=== PATIENT | male | born 1955 | race Caucasian/White ===

== ENCOUNTER 2019-01-25 05:45 | Emergency (ER) | payer BC, OTHER ==
--- NOTE | 2019-01-25 06:20 | ED ---
HPI Chest Pain - HPI Summary HPI Summary: Pt. is a 63 y.o male who was transferred from [facility] for elevated troponin. Pt. denies past medical hx of HTN, HDL, CAD, smoking. He denies strong family hx of CAD. Pt. reports hx of ETOH use but states he has since stopped drinking. Pt. states he went on vacation with his last week and since has been having abd. pain. Pain is diffuse and sharp in nature. Pt. was seen at [facility] 01/21 and had a noncontrast ct which was reportedly unremarkable other than renal stones. Pt. states his abd. pain persisted so he went back to [place] [facility] for abd. pain. He was found to have a troponin x 1 of 0.059. ECG unremarkable. Pt. received ASA, morphine and carvedilol. Pt. denies any hx of chest pain, shortness of breath, dizziness, syncope. Pt. denies CAD hx. He states he sees his PCP on a regular basis. Has never had stress test. Sxs are moderate in severity. Pt. currently denies any CP or abd. pain in ED. - History of Current Complaint Chief Complaint: EDGeneral Time Seen by Provider: 01/25/19 05:57 Hx Obtained From: Patient Pain Intensity: 0 - Allergy/Home Medications Allergies/Adverse Reactions: Allergies Allergy/AdvReac Type Severity Reaction Status Date / Time No Known Allergies Allergy Verified 01/25/19 05:53 PMH/Surg Hx/FS Hx/Imm Hx Previously Healthy: Yes Infectious Disease History: No Infectious Disease History: Denies: Traveled Outside the [place] in Last 30 Days - Family History Known Family History: Positive: Non-Contributory - Social History Occupation: Retired Lives: With Family Alcohol Use: Occasionally Substance Use Type: Reports: None Smoking Status (MU): Never Smoked Tobacco Review of Systems Constitutional: Negative Negative: Fever, Chills Cardiovascular: Negative Negative: Palpitations, Chest Pain Respiratory: Negative Negative: Shortness Of Breath, Cough Positive: Abdominal Pain. Negative: Vomiting, Diarrhea, Nausea Genitourinary: Negative Neurological: Negative All Other Systems Reviewed And Are Negative: Yes Physical Exam Triage Information Reviewed: Yes Vital Signs On Initial Exam: Initial Vitals Temp Pulse Resp BP Pulse Ox 98.4 F 75 16 141/79 98 01/25/19 05:48 01/25/19 05:48 01/25/19 05:48 01/25/19 05:48 01/25/19 05:48 Vital Signs Reviewed: Yes Appearance: Positive: Well-Appearing - Pt. sitting up in bed in NAD. Pleasant. Skin: Positive: Warm, Dry Head/Face: Positive: Normal Head/Face Inspection Eyes: Positive: Normal, EOMI, GATO Neck: Positive: Supple Respiratory/Lung Sounds: Positive: Clear to Auscultation, Breath Sounds Present Cardiovascular: Positive: Normal, RRR. Negative: Murmur Abdomen Description: Positive: Nontender, Soft. Negative: CVA Tenderness (R), CVA Tenderness (L) Musculoskeletal: Positive: Normal, Strength/ROM Intact Neurological: Positive: Normal, CN Intact II-III Psychiatric: Positive: Affect/Mood Appropriate Diagnostics - Vital Signs Vital Signs Temp Pulse Resp BP Pulse Ox 01/25/19 06:03 72 19 119/85 98 01/25/19 06:00 79 17 98 01/25/19 05:56 76 15 97 01/25/19 05:48 98.4 F 75 16 141/79 98 - Laboratory Result Diagrams: 01/25/19 06:25 01/25/19 06:25 Lab Statement: Any lab studies that have been ordered have been reviewed, and results considered in the medical decision making process. Chest Pain Course/Dx - Course Course Of Treatment: Pt. transferred for elevated troponin. Pt. currently has no pain on exam and has a benign abd. exam. ECG done at 0629 shows a sinus rhythm of 72bpm, normal axis, no ST elevation or depression. 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 Will repeat labs. CT scan abd/pelvis without contrast was obtained from [facility] from 01/21/19 impression per radiology: "1. enlarged uncinate process with surroudning edema and adenopathy, suspicious for pancreatitis. an underlying mass should be excluded at the conclusion of medical therapy with dedicated contrast enhanced CT of the pancreas. 2. left renal stones, small pericardial effusion, and diverticulosis." Will obtain ct scan with contrast for further information on pancreatic mass. CT abd./pelvis per radiolgoy: IMPRESSION: #. The constellation of findings is highly suspicious for a pancreatic adenocarcinoma. centered at the uncinate process with extension to the third portion of the duodenum and. partial encasement of the superior mesenteric artery as well as resulting mild obstruction. of the main pancreatic duct. Probable metastatic lymph nodes in the central small bowel. mesentery. No liver metastasis is identified. #. Results discussed with ISI Raymond 01/25/2019 8:59 AM EDT. Labs unremarkable other than troponin x 2 at 0.04. Discussed case with Dr. Rojas who feels pt.'s sxs are not cardiac related and that pt. can f.u outpt. with pcp and oncology. Case discussed with Dr. Lambert, oncology, and they will see pt. in office 01/30/19 at 1400. Results and plan discussed with pt. Pt. notes he was rx tramadol last week from er but states they are not helping with his pain. ART MUSEUM AIDE reviewed, no red flags noted, small rx for lortab. Pt. and understand and agree with plan. Will return to ER if sxs change or worsen otherwise will f.u with oncology on Monday for further evaluation of mass. - Diagnoses Provider Diagnoses: Pancreatic mass Discharge - Sign-Out/Discharge Documenting (check all that apply): Patient Departure Patient Received Moderate/Deep Sedation with Procedure: No - Discharge Plan Condition: Good Disposition: HOME Prescriptions: Hydrocodone/Acetaminophen [Hydrocodone-Acetamin 5-325 mg] 1 each PO Q6H #12 tablet MDD 4 Referrals: Bettye MENDEZ,Igor Zavala [Primary Care Provider] - Haroon Lambert MD [Medical Doctor] - Additional Instructions: Oncology will see you in office 01/30/19 at 2:00pm Return to ER sooner if symptoms change or worsen - Billing Disposition and Condition Condition: GOOD Disposition: Home
[2019-01-25 06:31] LABS: ABS Eosinophils 0.1 10^3/ul (0-0.6); ABS Lymphocytes 1.7 10^3/ul (1.0-4.8); ABS Monocytes 0.8 10^3/ul (0-0.8); ABS Neutrophils 7.8 10^3/ul (1.5-7.7); Eosinophil % 1.1 %; Hematocrit 41 % (42-52); Hemoglobin 13.9 g/dL (14.0-18.0); Mean Corpuscular HGB Conc 34 g/dL (31-36); Mean Corpuscular Hemoglobin 31 pg (27-31); Mean Corpuscular Volume 92 fL (80-94); Mean Platelet Volume 8.3 fL (7.4-10.4); Nucleated Red Blood Cells % 0.1; Platelet Count 282 10^3/uL (150-450); Red Blood Count 4.44 10^6 /uL (4.18-5.48); Red Cell Distribution Width 14 % (10-15); White Blood Count 10.4 10^3/uL (3.5-10.8)
[2019-01-25 06:39] LABS: Activated Partial Thrombo Time 33.3 seconds (26.0-38.0); INR 1.1 (0.82-1.09)
[2019-01-25 06:50] LABS: BUN/Creatinine Ratio 11.6 (8-20); Potassium 3.8 mmol/L (3.5-5.0)
[2019-01-25 06:51] LABS: Albumin 4.2 g/dL (3.2-5.2); Albumin/Globulin Ratio 1.5 (1-3); Calcium 9.6 mg/dL (8.6-10.3); EGFR African American 140.6 (>60); EGFR Non-African American 116.2 (>60); Globulin 2.8 g/dL (2-4); Magnesium 2.2 mg/dL (1.9-2.7); Total Bilirubin 0.5 mg/dL (0.2-1.0)
[2019-01-25 06:51] LABS: Urine Appearance Clear; Urine Bilirubin Negative (Negative); Urine Blood Negative (Negative); Urine Color Yellow; Urine Glucose Negative (Negative); Urine Ketones Negative (Negative); Urine Nitrite Negative (Negative); Urine Protein Negative (Negative); Urine Specific Gravity 1.012 (1.010-1.030); Urine Urobilinogen Negative (Negative)
[2019-01-25 06:59] LABS: Troponin I 0.04 ng/mL (<0.04)
[2019-01-25] MEDS ORDERED: Iohexol 300* (CONTRAST) 10 ML SDV IV ONE (07:46)
[2019-01-25 09:21] LABS: Troponin I 0.04 ng/mL (<0.04)
[2019-01-25 09:49] VITALS: BP 132/83
== END 2019-01-25 09:48 | disposition home or self-care (01) ==
LOC: ED 05:45
DX: K86.9 Disease of pancreas, unspecified (principal)
CPT/HCPCS: 36415; 74177; 80053; 81003; 83605; 83690; 83735; 84484; 85025; 85610; 85730; 93005; 99283; Q9967

== ENCOUNTER 2019-02-03 08:12 | Observation (INO) | payer BC ==
[2019-02-03] MEDS ORDERED: Ondansetron INJ* 2 MG/ML VIAL IV ONE (08:27)
[2019-02-03] MEDS ORDERED: HYDROmorphone INJ1* 1 MG/ML SYRINGE IV ONE ×2 (08:27→10:35)
[2019-02-03] MEDS ORDERED: NS 0.9% 1000 ML** 1,000 ML IV ONE (08:27)
--- NOTE | 2019-02-03 08:28 | ED ---
Abdominal Pain/Male - HPI Summary HPI Summary: Pt. is a 63 y.o male who presents to the ER for severe abdominal pain. Pt. recently diagnosed with a pancreatic mass. He saw oncology, Dr. Lambert, this past week and is scheduled for biopsy next week. Pt. states he has been taking lortab for pain which has been mildly helping. Pt. states that pain became more sever last night and he was unable to sleep. Pain is located to upper abd. Associated sxs of nausea. Pt. notes mild CP last night that has resolved. He denies SOB, fever, cough. He notes he has been constipated but took a laxative last night and produced a BM. Sxs are moderate in severity. No current modifying factors. - History of Current Complaint Chief Complaint: EDAbdPain Stated Complaint: ABD PAIN PER PT Time Seen by Provider: 02/03/19 08:17 Hx Obtained From: Patient Pain Intensity: 6 - Allergies/Home Medications Allergies/Adverse Reactions: Allergies Allergy/AdvReac Type Severity Reaction Status Date / Time No Known Allergies Allergy Verified 02/03/19 08:20 Home Medications: Home Medications Hydrocodone/Acetaminophen [Hydrocodone-Acetamin 5-325 mg] 1 each PO Q6H PRN MDD 4 02/03/19 [History Confirmed 02/03/19] Ondansetron ODT TAB* [Zofran 4 MG Odt TAB*] 4 mg PO Q8HR PRN 02/03/19 [History Confirmed 02/03/19] PMH/Surg Hx/FS Hx/Imm Hx Previously Healthy: Yes Infectious Disease History: No Infectious Disease History: Denies: Traveled Outside the [place] in Last 30 Days - Family History Known Family History: Positive: Non-Contributory - Social History Occupation: Retired Lives: With Family Alcohol Use: Occasionally Substance Use Type: Reports: None Smoking Status (MU): Never Smoked Tobacco Review of Systems Constitutional: Negative Negative: Fever, Chills ENT: Negative Cardiovascular: Negative Negative: Palpitations, Chest Pain Respiratory: Negative Negative: Shortness Of Breath, Cough Positive: Abdominal Pain, Nausea. Negative: Vomiting, Diarrhea Genitourinary: Negative Neurological: Negative All Other Systems Reviewed And Are Negative: Yes Physical Exam Triage Information Reviewed: Yes Vital Signs On Initial Exam: Initial Vitals Temp Pulse Resp BP Pulse Ox 98 F 103 16 152/94 98 02/03/19 08:12 02/03/19 08:12 02/03/19 08:12 02/03/19 08:12 02/03/19 08:12 Vital Signs Reviewed: Yes Appearance: Positive: Pain Distress - Pt. sitting on side of bed appears very uncomforable in pain. Skin: Positive: Warm, Dry Head/Face: Positive: Normal Head/Face Inspection Eyes: Positive: Normal, EOMI, GATO Neck: Positive: Supple Respiratory/Lung Sounds: Positive: Clear to Auscultation, Breath Sounds Present Cardiovascular: Positive: Normal, RRR Neurological: Positive: Normal, CN Intact II-III Diagnostics - Vital Signs Vital Signs Temp Pulse Resp BP Pulse Ox 02/03/19 08:12 98 F 103 16 152/94 98 - Laboratory Result Diagrams: 02/03/19 08:40 02/03/19 08:40 Lab Statement: Any lab studies that have been ordered have been reviewed, and results considered in the medical decision making process. Abdominal Pain Male Course/Dx - Course Course Of Treatment: Pt. presenting with severe upper abd. pain. He is afebrile with stable VS. Pt. dx with pancreatic mass last week. Pt. notes an episode of chest pain last night. IV started. Pt. given IV dilaudid. CBC shows mild elevation in WBC of 11.1. Lactic acid 2.2. Troponin slighly elevated at 0.05. ECG done at 0856 shows a sinus rhythm of 83bpm, normal axis, no ST elevatio no depression. On re-exam pt.'s pain has improved and he is resting comfortably. Case discussed with Dr. Hobbs who recommends CTA to r/o PE given pain and ca. She also recommends admission for further cardiac workup. Case discussed with Dr. Bowers and she will accept pt. for admission. CTA per radiology: IMPRESSION : #. Extensive retained secretions/mucous plugging at the RIGHT lower lobe airways with. associated postobstructive atelectasis and potential inflammatory infiltrate. #. Negative for suspicious focal pulmonary lesions. # . Negative for pulmonary embolism. - Diagnoses Differential Diagnosis/HQI/PQRI: ACS, AMI, Appendicitis, Bowel Obstruction Provider Diagnoses: Elevated troponin, Uncontrolled pain Discharge - Sign-Out/Discharge Documenting (check all that apply): Patient Departure Patient Received Moderate/Deep Sedation with Procedure: No - Discharge Plan Condition: Stable Disposition: ADMITTED TO [facility] - Billing Disposition and Condition Condition: STABLE Disposition: Admitted to [facility]
[2019-02-03 08:54] LABS: ABS Basophils 0.1 10^3/ul (0-0.2); ABS Eosinophils 0.1 10^3/ul (0-0.6); ABS Lymphocytes 1.5 10^3/ul (1.0-4.8); ABS Monocytes 0.9 10^3/ul (0-0.8); ABS Neutrophils 8.4 10^3/ul (1.5-7.7); Eosinophil % 0.8 %; Hematocrit 44 % (42-52); Hemoglobin 14.3 g/dL (14.0-18.0); Lymphocyte % 13.3 %; Mean Corpuscular HGB Conc 33 g/dL (31-36); Mean Corpuscular Hemoglobin 31 pg (27-31); Mean Corpuscular Volume 93 fL (80-94); Mean Platelet Volume 8.5 fL (7.4-10.4); Platelet Count 375 10^3/uL (150-450); Red Cell Distribution Width 14 % (10-15); White Blood Count 11.1 10^3/uL (3.5-10.8)
[2019-02-03 09:05] LABS: ALT 19 U/L (7-52); AST 16 U/L (13-39); Albumin 4.4 g/dL (3.2-5.2); Albumin/Globulin Ratio 1.5 (1-3); Alkaline Phosphatase 81 U/L (34-104); Anion Gap 7 mmol/L (2-11); BUN/Creatinine Ratio 14.9 (8-20); Blood Urea Nitrogen 11 mg/dL (6-24); C Reactive Protein 2.41 mg/L (<8.01); CO2 Carbon Dioxide 26 mmol/L (22-32); Chloride 103 mmol/L (101-111); EGFR African American 129.7 (>60); EGFR Non-African American 107.2 (>60); Glucose 130 mg/dL (70-100); Potassium 3.7 mmol/L (3.5-5.0); Sodium 136 mmol/L (135-145); Total Protein 7.4 g/dL (6.4-8.9)
[2019-02-03 09:12] LABS: Troponin I 0.05 ng/mL (<0.04)
[2019-02-03 09:57] LABS: Urine Appearance Clear; Urine Bacteria Absent (Absent); Urine Bilirubin Negative (Negative); Urine Blood 1+ (Negative); Urine Color Yellow; Urine Glucose Negative (Negative); Urine Ketones Negative (Negative); Urine Nitrite Negative (Negative); Urine Protein Negative (Negative); Urine Red Blood Cell Trace(0-2/hpf) (Absent); Urine Specific Gravity 1.006 (1.010-1.030); Urine Urobilinogen Negative (Negative); Urine White Blood Cell Trace(0-5/hpf) (Absent)
[2019-02-03] MEDS ORDERED: Iohexol 350* (CONTRAST) 500 ML MDV IV ONE (11:30)
[2019-02-03] MEDS ORDERED: HYDROmorphone INJ* 0.5 MG/0.5 ML SYRINGE IV SLOW PU PRN (12:27)
[2019-02-03] MEDS ORDERED: Ondansetron ODT TAB* 4 MG SL PRN (12:29)
[2019-02-03 12:37] LABS: Troponin I 0.05 ng/mL (<0.04)
[2019-02-03] MEDS: oxyCODONE SR TAB(*) 10 MG TAB.SR PO SCH ×2 (13:07→22:16)
[2019-02-03] MEDS: Heparin VIAL(*) 5000 UNITS/ML VIAL (FIVE THOUSAND) SUBCUT SCH ×2 (14:26→22:17)
--- NOTE | 2019-02-03 14:59 | HP ---
CC: Dr. Lambert; Dr. Wen * [facility] MEDICINE HISTORY AND PHYSICAL: DATE OF ADMISSION: 02/03/19 PRIMARY CARE PHYSICIAN: Dr. Wen. ATTENDING PHYSICIAN: Dr. Albertina Bowers * (dictation provided by Marie Pandya NP ). CHIEF COMPLAINT: Abdominal and back pain. HISTORY OF PRESENT ILLNESS: Mr. Sykes is a 63-year-old male with no significant past medical history until January of this year. The patient reports that he developed abdominal pain on and was seen at [facility], at which time he was diagnosed with pancreatitis based on abnormal lipase. The patient was placed on a liquid diet, given pain medications and with this his pain resolved. He reports that he was doing well until November of this year when his pain returned. He was ultimately seen here in our hospital on 01/25/19, where he had an abdomen and pelvis CT, which showed concern for an uncinate process highly suspicious for pancreatic adenocarcinoma with extension to the third portion of the duodenum and encasement of the superior mesenteric artery as well as mild obstruction of the pancreatic duct. The patient was seen in consultation by Dr. Lambert on 01/31/19. I refer you to his consultation note for complete details. However, Dr. Lambert agreed that this was highly suspicious for pancreatic carcinoma and has referred him to [facility] for further workup. The patient has an appointment there tomorrow at 2 o'clock for a biopsy. In the intervening days, Mr. Sykes has had worsening pain. He says he has not slept for 2 weeks. He reports that he has severe pain along his left side that radiates down into his testicles and into his back. He has had chest pain at times. He states that it is mild, it is fleeting and seems to be when his pain is at its highest. He was given Hopewell 5/325 one tab p.o. q.6 hours for pain as well as Zofran. He states initially the Hopewell was helping with his pain, but over the last few days, nothing has been helping. Last night, he took 2 Hopewell and had no relief from his pain and ultimately presented here to the emergency room early this morning due to this uncontrolled abdominal pain. In the emergency room, Mr. Sykes had labs, which showed a mild elevation in his troponin to 0.05. This was consistent with his last check on 01/25/19, which showed it was 0.04 x2. He had an elevated lactic acid to 2.2. He has no leukocytosis. His hemoglobin and platelet count is normal, his urinalysis is normal. His vital signs are normal. With Dilaudid IV in the emergency room, he has had some improvement in his pain. PAST MEDICAL HISTORY: Finding of likely pancreatic carcinoma on CT abdomen and pelvis, 01/25/19. MEDICATIONS: As outpatient are: 1. Hopewell 5/325 one tab p.o. q.6 hours p.r.n. pain. 2. Zofran p.r.n. FAMILY HISTORY: The patient reports his mother related to lung cancer and father related to liver cancer. SOCIAL HISTORY: The patient is not a smoker. He reports that prior to this illness, he was drinking about a 30 pack of beer per week. He denies any drug use. He lives with his , his healthcare proxy. REVIEW OF SYSTEMS: A 14-point review of systems is completed with Ms. Sykes and all those not mentioned above were negative. PHYSICAL EXAMINATION GENERAL: Mr. Sykes is lying in the bed. He is in no acute distress. VITAL SIGNS: emperature 98, pulse rate 87, respiratory rate 18, O2 saturation 95% on room air, and blood pressure 165/91. LUNGS: Clear to auscultation bilaterally. No accessory muscle use and good aeration. HEART: S1, S2. No murmur, rub, or gallop and regular. ABDOMEN: Soft. There is tenderness in the left upper and mid quadrant. There is no rebound or guarding. Bowel sounds are positive. EXTREMITIES: No cyanosis or edema. SKIN: Intact. NEUROLOGIC: He is alert. He is oriented x3. He moves all extremities equally. There is no facial asymmetry or focal weakness. Extraocular movements are intact. DIAGNOSTIC STUDIES LAB DATA: WBC 11.1, hemoglobin 14.3, hematocrit 44, platelet count 375,000. Sodium 136, potassium 3.7, chloride 103, serum bicarbonate 26, BUN 11, creatinine 0.74, glucose 130, lactic acid 2.2, troponin 0.05. CRP 2.41. Urine shows no evidence of infection. A chest/thorax CTA was obtained and shows the following; "extensive retained secretions, mucus plugging at the right lower lobe airway with associated postobstructive atelectasis and potential inflammatory infiltrate. Negative for suspicious focal pulmonary lesions. Negative for pulmonary embolism. Chest x-ray showed the following; "stigmata of obstructive lung disease. No events for a thoracic metastatic disease. No acute pulmonary or cardiac process evident." EKG showed a sinus rhythm with no evidence of ischemia. ASSESSMENT: Mr. Sykes is a 63-year-old male with recent finding on 01/25/19 of a pancreatic mass highly suspicious for carcinoma with plan for followup tomorrow at 2 p.m. in [place] for biopsy, who presents today to the hospital with uncontrolled pain and concern for elevation in troponin. Our plans will be for observation in the hospital overnight for the followin. Elevated troponin: The patient does report some mild chest discomfort. I suspect that this is just secondary to his underlying uncontrolled pain. His troponin is 0.05, plan to repeat x 2. He will be monitored on the telemetry unit. If his troponin is stable as it has been since last checked on 01/25/19, I do not think a stress testing is warranted during this hospitalization. Of course, if the patient's troponins are rising, we will certainly consider workup as needed. 2. Uncontrolled pain. The patient is in significant pain and states he has not slept for 2 weeks because of it. He has tried Hopewell at home without good control. He has had Dilaudid here in the ED, which has helped. I think that his main issue is this uncontrolled pain and we would like to work with him today starting with oxycodone SR at 10 mg p.o. b.i.d., starting with one dose now and then to increase the dose tonight if need be. He will have oxycodone and acetaminophen 2 tabs q.4 hours p.r.n. as well and he will have hydromorphone 0.5 mg p.r.n. for breakthrough beyond his oral regimen. Goal for the observation stay is also to improve his pain control so that he can withstand the ride to [place] where he will be obtaining his necessary biopsy. 3. Code status is full code. 4. DVT prophylaxis. Heparin subcu. TIME SPENT: Approximately 60 minutes were spent in admission of this patient, more than half of the time spent with the patient at the bedside reviewing the events leading up to this hospitalization, performing the physical examination, and reviewing my plan of care. L JACOB PANDYA NP [id number]/[facility] #: [id number] [facility]OSPITALBeth
[2019-02-03] MEDS: oxyCODONE/Acetamin 5/325 MG* TAB PO PRN ×2 (15:01→20:33)
[2019-02-03 15:53] LABS: Troponin I 0.04 ng/mL (<0.04)
[2019-02-03 19:30] LABS: Troponin I 0.05 ng/mL (<0.04)
[2019-02-04] MEDS: Heparin VIAL(*) 5000 UNITS/ML VIAL (FIVE THOUSAND) SUBCUT SCH (05:05)
[2019-02-04 08:36] VITALS: BP 126/71
[2019-02-04] MEDS: oxyCODONE SR TAB(*) 10 MG TAB.SR PO SCH (09:24)
[2019-02-04] MEDS: oxyCODONE/Acetamin 5/325 MG* TAB PO PRN (10:12)
--- NOTE | 2019-02-04 23:36 | DS ---
CC: Dr. Wen; Dr. Lambert * DISCHARGE SUMMARY: DATE OF ADMISSION: 02/03/19 DATE OF DISCHARGE: 02/04/19 PRIMARY DIAGNOSIS: Abdominal pain. SECONDARY DIAGNOSIS: Pancreatic mass, suspicious for pancreatic adenocarcinoma , nausea. MEDICATIONS ON DISCHARGE: 1. Ondansetron 4 mg p.o. q.8 hours as needed for nausea. 2. OxyContin 10 mg p.o. b.i.d. 3. Oxycodone/acetaminophen 5/325 one to two tabs p.o. q.6 hours p.r.n. pain. The patient was sent home with 30 tablets of OxyContin and 40 tablets of oxycodone/acetaminophen. MANAGER PORT was checked showed that he previously received hydrocodone from Dr. Lambert. CONSULTATIONS: None. HOSPITAL COURSE: The patient was admitted with right flank and abdominal pain that was not responding to outpatient treatment with hydrocodone. There was a concern about chest pain. In the emergency department, the patient had troponin drawn, which was 0.05. The troponins were repeated on 3 other occasions and the readings were 0.05, 0.04, and 0.05. Initial lactic acid was 2.2, it fell to 1.0. There were no other signs of sepsis, such as tachycardia, fever, or high white count. The patient was monitored on telemetry overnight and had no specific arrhythmias. No cardiac testing was pursued as the pain in his epigastric area was thought to be due to this pancreatic mass. Other laboratory tests of note, white count was 11.1. Urinalysis was negative except for 1+ blood. Lipase was normal at 55. The patient had an appointment on the day of discharge in [place] for biopsy of the pancreatic lesion. Because no cardiac problems were found overnight, the patient was discharged this morning with plan to see specialist later today in [place]. If chest pain returns, the patient should have a outpatient cardiac stress test. Because he is a nonsmoker and no known hypertension, hyperlipidemia, or diabetes, he is thought to be low risk for heart disease. STATUS: Observation. CONDITION: Stable. DISPOSITION: Home. DIET: Should be low fat diet. ACTIVITY: As tolerated. [id number]/[facility] #: [id number] [facility] SYSTEMBeth
== END 2019-02-04 10:24 | disposition home or self-care (01) ==
LOC: ED 08:12 → MEDTELE 12:27
PROVIDERS: ADMIT Internal Medicine; ATTEND Internal Medicine
DX: R10.9 Unspecified abdominal pain (principal); K86.9 Disease of pancreas, unspecified; R11.0 Nausea; M54.9 Dorsalgia, unspecified
CPT/HCPCS: 36415; 71045; 71275; 80053; 81003; 81015; 83605; 83690; 84484; 85025; 86140; 87086; 93005; 96361; 96372; 96374; 96375; 96376; 99285; A9270-GY; G0378; J1170; J1644; J2405; Q9967

== ENCOUNTER 2019-02-17 03:59 | Emergency (ER) | payer BC ==
[2019-02-17 04:19] LABS: ABS Basophils 0.1 10^3/ul (0-0.2); ABS Eosinophils 0.2 10^3/ul (0-0.6); ABS Lymphocytes 1.4 10^3/ul (1.0-4.8); ABS Monocytes 0.8 10^3/ul (0-0.8); ABS Neutrophils 8.9 10^3/ul (1.5-7.7); Eosinophil % 1.8 %; Hematocrit 39 % (42-52); Hemoglobin 13.1 g/dL (14.0-18.0); Lymphocyte % 12.4 %; Mean Corpuscular HGB Conc 34 g/dL (31-36); Mean Corpuscular Hemoglobin 31 pg (27-31); Mean Corpuscular Volume 92 fL (80-94); Mean Platelet Volume 7.9 fL (7.4-10.4); Nucleated Red Blood Cells % 0.1; Platelet Count 331 10^3/uL (150-450); Red Blood Count 4.22 10^6 /uL (4.18-5.48); Red Cell Distribution Width 14 % (10-15); White Blood Count 11.5 10^3/uL (3.5-10.8)
[2019-02-17 04:38] LABS: ALT 28 U/L (7-52); AST 18 U/L (13-39); Albumin 4.3 g/dL (3.2-5.2); Albumin/Globulin Ratio 1.6 (1-3); Alkaline Phosphatase 75 U/L (34-104); Anion Gap 8 mmol/L (2-11); BUN/Creatinine Ratio 21.6 (8-20); Blood Urea Nitrogen 19 mg/dL (6-24); CO2 Carbon Dioxide 24 mmol/L (22-32); Calcium 9.8 mg/dL (8.6-10.3); Chloride 105 mmol/L (101-111); EGFR African American 106.2 (>60); EGFR Non-African American 87.8 (>60); Globulin 2.7 g/dL (2-4); Glucose 117 mg/dL (70-100); Potassium 3.8 mmol/L (3.5-5.0); Sodium 137 mmol/L (135-145)
[2019-02-17 04:50] LABS: INR 1.08 (0.82-1.09)
[2019-02-17 04:53] LABS: Troponin I 0.04 ng/mL (<0.04)
[2019-02-17] MEDS ORDERED: Morphine 4 MG/ML VIAL (1 ml) 4 MG/ML VIAL IV ONE ×2 (05:26→07:21)
[2019-02-17] MEDS ORDERED: Iohexol 350* (CONTRAST) 500 ML MDV IV ONE (05:29)
--- NOTE | 2019-02-17 06:24 | ED ---
HPI Chest Pain - HPI Summary HPI Summary: The patient is a 63 y/o M presenting to [facility] accompanied by with a chief complaint of sudden onset intermittent episodes of left anterior CP starting two days ago. He reports that two days ago, he felt two episodes of sharp, "electrical shock" sensations in the left chest that last for seconds. He then had two more episodes the next day, and he developed SOB and diaphoresis. He additionally c/o cough, nausea and vomiting for 2-3 days, constipation, and abd pain. He denies new edema. The pain is currently rated 3/10. 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 Hx mitral valve prolapse, pancreatic cancer. Nonsmoker, no EtOH, marijuana use. - History of Current Complaint Chief Complaint: EDChestPainROMI Time Seen by Provider: 02/17/19 04:24 Hx Obtained From: Patient Onset/Duration: Started Days Ago - two, Still Present Timing: Intermittent, Lasting Seconds Initial Severity: Mild Current Severity: Moderate Pain Intensity: 3 Pain Scale Used: 0-10 Numeric Chest Pain Location: Left Anterior Chest Pain Radiates: No Character: Other: - "electric shock" Aggravating Factor(s): Nothing Alleviating Factor(s): Nothing Associated Signs and Symptoms: Positive: Shortness of Breath, Diaphoresis, Nausea, Cough, Abdominal Pain, Vomiting, Other: - NEGATIVE: constipation. Negative: Edema - Allergy/Home Medications Allergies/Adverse Reactions: Allergies Allergy/AdvReac Type Severity Reaction Status Date / Time No Known Allergies Allergy Verified 02/15/19 12:25 Home Medications: Home Medications Docusate Sodium [Colace] 100 mg PO BID 02/17/19 [History Confirmed 02/17/19] PMH/Surg Hx/FS Hx/Imm Hx Endocrine/Hematology History: Denies: Hx Diabetes Cardiovascular History: Reports: Other Cardiovascular Problems/Disorders - pt reports prolapse Denies: Hx Hypertension Respiratory History: Reports: Hx Seasonal Allergies - pt reports "not bad, doesnt even take anything for them" History: Reports: Hx Kidney Stones - pt reports last week Denies: Hx Renal Disease Sensory History: Reports: Hx Hearing Problem - left side pt reports 30% loss Denies: Hx Contacts or Glasses, Hx Hearing Aid, Other Sensory Impairments Opthamlomology History: Denies: Hx Contacts or Glasses, Other Sensory Impairments - Surgical History Surgery Procedure, Year, and Place: chest tube for punctured lung. lumbar surgery. left knee ACL repair. left TKA. L4-L5 Back surgery 1996 Hx Anesthesia Reactions: No Infectious Disease History: No Infectious Disease History: Reports: Hx Shingles - 2014, Hx Tuberculosis - 1985 Denies: Hx Clostridium Difficile, Hx Hepatitis, Hx Human Immunodeficiency Virus (HIV), Hx of Known/Suspected MRSA, Hx Known/Suspected VRE, Hx Known/ Suspected VRSA, History Other Infectious Disease, Traveled Outside the [place] in Last 30 Days - Family History Known Family History: Negative: Hypertension - Social History Alcohol Use: None Alcohol Amount: for 8 months Hx Substance Use: Yes Substance Use Type: Reports: Marijuana Substance Use Comment - Amount & Last Used: occasional Hx Tobacco Use: No Smoking Status (MU): Never Smoked Tobacco Review of Systems Positive: Skin Diaphoresis Positive: Chest Pain - quick, sharp "electrical" in left anterior Positive: Shortness Of Breath, Cough Positive: Abdominal Pain, Vomiting, Nausea, Other - constipation. Negative: Diarrhea Negative: Edema All Other Systems Reviewed And Are Negative: Yes Physical Exam - Summary Physical Exam Summary: Constitutional: Well-developed, Well-nourished, Alert. (-) Distressed Skin: Warm, Dry HENT: Normocephalic; Atraumatic Eyes: Conjunctiva normal Neck: Musculoskeletal ROM normal neck. (-) JVD, (-) Stridor, (-) Tracheal deviation Cardio: Rhythm regular, rate normal, Heart sounds normal; Intact distal pulses; The pedal pulses are 2+ and symmetric. Radial pulses are 2+ and symmetric. (-) Murmur Pulmonary/Chest wall: Effort normal. (-) Respiratory distress, (-) Wheezes, (-) Rales Abd: Soft, (+) tenderness across the upper abdomen, (-) Distension, (-) Guarding , (-) Rebound Musculoskeletal: Atraumatic Lymph: (-) Cervical adenopathy Neuro: Alert, Oriented x3 Psych: Mood and affect Normal Triage Information Reviewed: Yes Vital Signs On Initial Exam: Initial Vitals Temp Pulse Resp BP Pulse Ox 98.4 F 84 30 141/86 99 02/17/19 04:08 02/17/19 04:08 02/17/19 04:08 02/17/19 04:08 02/17/19 04:08 Vital Signs Reviewed: Yes Diagnostics - Vital Signs Vital Signs Temp Pulse Resp BP Pulse Ox 02/17/19 06:00 85 18 92 02/17/19 05:29 28 02/17/19 05:10 87 31 144/85 99 02/17/19 05:00 31 02/17/19 04:55 29 126/80 02/17/19 04:10 87 26 141/86 99 02/17/19 04:08 98.4 F 84 30 141/86 99 - Laboratory Lab Results: Lab Results 02/17/19 02/17/19 02/17/19 Range/Units 04:12 04:12 04:12 WBC 11.5 H (3.5-10.8) 10^3/uL RBC 4.22 (4.18-5.48) 10^6 /uL Hgb 13.1 L (14.0-18.0) g/dL Hct 39 L (42-52) % MCV 92 (80-94) fL MCH 31 (27-31) pg MCHC 34 (31-36) g/dL RDW 14 (10-15) % Plt Count 331 (150-450) 10^3/uL MPV 7.9 (7.4-10.4) fL Neut % (Auto) 77.7 % Lymph % (Auto) 12.4 % [place] % (Auto) 7.3 % Eos % (Auto) 1.8 % Baso % (Auto) 0.8 % Absolute Neuts (auto) 8.9 H (1.5-7.7) 10^3/ul Absolute Lymphs (auto) 1.4 (1.0-4.8) 10^3/ul Absolute Monos (auto) 0.8 (0-0.8) 10^3/ul Absolute Eos (auto) 0.2 (0-0.6) 10^3/ul Absolute Basos (auto) 0.1 (0-0.2) 10^3/ul Absolute Nucleated RBC 0.0 10^3/ul Nucleated RBC % 0.1 INR (Anticoag Therapy) 1.08 (0.82-1.09) Sodium 137 (135-145) mmol/L Potassium 3.8 (3.5-5.0) mmol/L Chloride 105 (101-111) mmol/L Carbon Dioxide 24 (22-32) mmol/L Anion Gap 8 (2-11) mmol/L BUN 19 (6-24) mg/dL Creatinine 0.88 (0.67-1.17) mg/dL Est GFR ( Amer) 106.2 (>60) Est GFR (Non-Af Amer) 87.8 (>60) BUN/Creatinine Ratio 21.6 H (8-20) Glucose 117 H (70-100) mg/dL Calcium 9.8 (8.6-10.3) mg/dL Total Bilirubin 0.50 (0.2-1.0) mg/dL AST 18 (13-39) U/L ALT 28 (7-52) U/L Alkaline Phosphatase 75 (34-104) U/L Troponin I 0.04 H* (<0.04) ng/mL Total Protein 7.0 (6.4-8.9) g/dL Albumin 4.3 (3.2-5.2) g/dL Globulin 2.7 (2-4) g/dL Albumin/Globulin Ratio 1.6 (1-3) Result Diagrams: 02/17/19 04:12 02/17/19 04:12 Lab Statement: Any lab studies that have been ordered have been reviewed, and results considered in the medical decision making process. - Radiology CXR Radiology Interpretation Completed By: Radiologist Summary of Radiographic Findings: Left lobe with infiltrate, questionable PNA. ED physician has reviewed this imaging report. - CT Chest/Thorax CTA CT Interpretation Completed By: Radiologist Summary of CT Findings: No evidence of pulmonary embolism. ED physician has reviewed this imaging report. - EKG 0402 Cardiac Rate: NL - 84 BPM EKG Rhythm: Sinus Rhythm Summary of EKG Findings: Normal sinus rhythm at 84 bpm, normal [place], normal QRS, normal QTc, normal axis, normal ST, normal T-waves, normal EKG. Re-Evaluation - Re-Evaluation First Eval Re-Evaluation Time: 06:00 Change: Improved Comment: He is feeling better. Second Eval Re-Evaluation Time: 07:30 Comment: I discussed findings and possible discharge with the patient. Chest Pain Course/Dx - Course Course Of Treatment: The patient is a 63 y/o M presenting to [facility] accompanied by with a chief complaint of sudden onset four intermittent episodes of left anterior CP starting two days ago that feels like electric shock lasting for seconds. He then had two more episodes the next day, and he developed SOB and diaphoresis. He additionally c/o nausea and vomiting for 2-3 days, constipation, and abd pain. He denies new edema. Hx mitral valve prolapse, pancreatic cancer. Upon physical exam, the patient exhibits tenderness across the upper abd without rebound or guarding. Blood work reveals WBCs of 11.5, hgb of 13.1, hct of 39, abs neuts of 8.9, BUN/Creatinine of 21.6, glucose of 117. Troponin of 0.04. EKG reveals nonspecific EKG of NSR at 84 BPM. CXR reveals left lobe with infiltrate, questionable PNA. Chest/Thorax CTA Impression: No evidence of pulmonary embolism. In the ED course, the patient was administered Morphine, Doxycycline, Percocet, and Roxycodone. The patient is diagnosed with chest pain, questionable PNA, and pancreatic cancer. He will be discharged with rx of Doxycycline. - Diagnoses Provider Diagnoses: Chest pain, Pancreatic cancer Discharge - Sign-Out/Discharge Documenting (check all that apply): Patient Departure - Patient will be discharged home. Patient Received Moderate/Deep Sedation with Procedure: No - Discharge Plan Condition: Stable Disposition: HOME Prescriptions: DOXYcycline CAP(*) [DOXYcycline 100MG CAP(*)] 100 mg PO BID #20 cap Oxycodone HCl/Acetaminophen [Percocet 7.5-325 mg Tablet] 1 each PO Q4HR PRN #20 tablet MDD 4 PRN Reason: Pain Patient Education Materials: Acute Abdominal Pain (ED), Community Acquired Pneumonia (ED) Print Language: [place] Referrals: Dereje Wen MD [Primary Care Provider] - - Billing Disposition and Condition Condition: STABLE Disposition: Home - Attestation Statements Document Initiated by Satya: Yes Documenting Scribe: Kiya Douglass Provider For Whom Satya is Documenting (Include Credential): MD Jaylen Ruizibe Attestation: Kiya Campos scribed for Dr. Dary Vega MD on 02/17/19 at 0903. Scribe Documentation Reviewed: Yes Provider Attestation: The documentation as recorded by the Kiya bledsoe accurately reflects the service I personally performed and the decisions made by me, Dr. Dary Vega MD Status of Scribe Document: Viewed
[2019-02-17 07:40] LABS: Troponin I 0.04 ng/mL (<0.04)
[2019-02-17] MEDS ORDERED: oxyCODONE/Acetamin 5/325 MG* TAB PO PRN (08:07)
[2019-02-17] MEDS ORDERED: DOXYCYCLINE HYCLATE 50 MG CAP (NF) PO ONE (08:07)
[2019-02-17] MEDS ORDERED: oxyCODONE TAB* 5 MG TAB PO PRN (08:15)
[2019-02-17 08:34] VITALS: BP 125/71
[2019-02-17] MEDS ORDERED: DOXYcycline CAP(*) 100 MG PO ONE (09:00)
== END 2019-02-17 09:03 | disposition home or self-care (01) ==
LOC: ED 03:59
DX: R07.9 Chest pain, unspecified (principal); C25.9 Malignant neoplasm of pancreas, unspecified; I34.1 Nonrheumatic mitral (valve) prolapse
CPT/HCPCS: 36415; 71046; 71275; 80053; 84484; 85025; 85610; 93005; 96374; 96375; 99283; A9270-GY; J2270; Q9967

== ENCOUNTER 2021-01-24 21:42 | Inpatient (IN) ==
[2021-01-24] MEDS ORDERED: diPHENhydraMINE IV 50 MG/ML 1 ml VIAL (BENADRYL) SLOW PUSH ONE (22:15)
[2021-01-24 22:59] LABS: Hematocrit 26 % (42-52); Hemoglobin 8.7 g/dL (14.0-18.0); Mean Corpuscular HGB Conc 34 g/dL (31-36); Mean Corpuscular Hemoglobin 33 pg (27-31); Mean Corpuscular Volume 97 fL (80-94); Mean Platelet Volume 9.9 fL (7.4-10.4); Platelet Count 70 10^3/uL (150-450); Red Blood Count 2.65 10^6 /uL (4.18-5.48); Red Cell Distribution Width 23 % (10-15); White Blood Count 11.9 10^3/uL (3.5-10.8)
[2021-01-24 23:07] LABS: ALT 17 U/L (7-52); AST 23 U/L (13-39); Albumin 2.4 g/dL (3.2-5.2); Alkaline Phosphatase 106 U/L (35-149); Blood Urea Nitrogen 24 mg/dL (6-24); Calcium 7.5 mg/dL (8.6-10.3); EGFR African American 63.3 (>60); EGFR Non-African American 52.3 (>60); Globulin 2.3 g/dL (2-4); Glucose 119 mg/dL (70-100); Potassium 3.1 mmol/L (3.5-5.0); Sodium 133 mmol/L (135-145); Total Protein 4.7 g/dL (6.4-8.9)
[2021-01-24 23:12] LABS: Chloride 112 mmol/L (101-111)
[2021-01-24 23:13] LABS: Anion Gap 11 mmol/L (2-11); Troponin I 0.05 ng/mL (<0.03)
[2021-01-24 23:15] LABS: CO2 Carbon Dioxide 10 mmol/L (22-32)
[2021-01-24 23:21] LABS: Polychromasia 1+
[2021-01-24 23:22] LABS: ABS Lymphocytes 0.4 10^3/ul (1.0-4.8); ABS Monocytes 0.3 10^3/ul (0-0.8); ABS Neutrophils 11.2 10^3/ul (1.5-7.7); ABS Nucleated RBC 0.3 10^3/ul; Nucleated Red Blood Cells % 2.4
[2021-01-24] MEDS ORDERED: Iodixanol (CONTRAST) 320 MG/ML 100 ML SDV IV ONE (23:38)
[2021-01-24] MEDS ORDERED: NS 0.9% 1000 ml BAG 1,000 ML IV ONE (23:55)
[2021-01-25] MEDS ORDERED: Azithromycin 500 mg/250 ml NS 500 MG/250 ML BAG IVPB ONE (01:03)
[2021-01-25] MEDS ORDERED: cefTRIAXone 1 gm/50 mL NS BAG 1 GM/50 ML BAG IV ONE (01:03)
[2021-01-25] MEDS ORDERED: Vancomycin 1,000 MG in NS 0.9% 250 ml 250 ML IVPB ONE (01:37)
[2021-01-25] MEDS ORDERED: Sodium Bicarbonate 8.4% SYR 50 ml SYRINGE IV ONE (01:38)
[2021-01-25] MEDS ORDERED: Lactated Ringers 1000 ml BAG 1,000 ML IV ONE ×2 (01:46→06:08)
[2021-01-25] MEDS ORDERED: Ondansetron 4 mg VIAL 2 MG/ML 2 ml VIAL IV PRN (01:46)
[2021-01-25] MEDS ORDERED: LACTATED RINGERS IV SCH (02:00)
[2021-01-25] MEDS ORDERED: Vancomycin per Pharmacy 1 EA NOTE FOLLOW UP SCH (02:00)
[2021-01-25 02:10] LABS: Magnesium 1.6 mg/dL (1.9-2.7)
[2021-01-25] MEDS ORDERED: Magnesium Sulfate 2 gm BAG 2 GM/50 ML BAG IVPB ONE (02:16)
[2021-01-25] MEDS: KCL 20 MEQ/100 ML IVPREMIX 20 MEQ/100 ML BAG IV SCH ×4 (02:20→09:25)
[2021-01-25] MEDS: Cefepime 2 GM in Dextrose 2 GM/50 ML BAG IV SCH ×2 (05:17→18:19)
[2021-01-25 06:07] LABS: Troponin I 0.05 ng/mL (<0.03)
[2021-01-25 06:08] LABS: Blood Urea Nitrogen 23 mg/dL (6-24); Calcium 7.1 mg/dL (8.6-10.3); EGFR African American 78.3 (>60); EGFR Non-African American 64.7 (>60); Glucose 79 mg/dL (70-100); Potassium 3.1 mmol/L (3.5-5.0); Sodium 137 mmol/L (135-145)
[2021-01-25 06:11] LABS: Hematocrit 27 % (42-52); Mean Corpuscular HGB Conc 34 g/dL (31-36); Mean Corpuscular Hemoglobin 33 pg (27-31); Mean Corpuscular Volume 97 fL (80-94); Mean Platelet Volume 10.1 fL (7.4-10.4); Platelet Count 61 10^3/uL (150-450); Red Blood Count 2.74 10^6 /uL (4.18-5.48); Red Cell Distribution Width 23 % (10-15)
[2021-01-25 06:12] LABS: Chloride 114 mmol/L (101-111)
[2021-01-25 06:14] LABS: Anion Gap 10 mmol/L (2-11)
[2021-01-25 06:15] LABS: CO2 Carbon Dioxide 13 mmol/L (22-32)
[2021-01-25 06:30] LABS: Polychromasia 1+
[2021-01-25 06:31] LABS: ABS Lymphocytes 0.6 10^3/ul (1.0-4.8); ABS Monocytes 0.4 10^3/ul (0-0.8); ABS Neutrophils 9.9 10^3/ul (1.5-7.7); ABS Nucleated RBC 0.2 10^3/ul; Lymphocyte % 5.6 %; Nucleated Red Blood Cells % 1.9
[2021-01-25 08:05] LABS: Magnesium 2.2 mg/dL (1.9-2.7)
[2021-01-25 08:10] LABS: Phosphorus 1.8 mg/dL (2.5-5.0)
[2021-01-25] MEDS: Magic MouthWash2-BEN/MAAL/LIDO/NYST 240 ML BTL (alt formulation) SWISH SPIT SCH ×4 (09:26→21:39)
[2021-01-25] MEDS ORDERED: Potassium Phosphate IV 15 MMOLE in NS 0.9% 250 ml 250 ML IVPB ONE (10:00)
[2021-01-25 11:30] LABS: Influenza A Molecular Negative (Negative); Influenza B Molecular Negative (Negative)
[2021-01-25] MEDS ORDERED: KCL 20 MEQ/100 ML IVPREMIX 20 MEQ/100 ML BAG IV SCH (12:00)
[2021-01-25] MEDS: Vancomycin 750 MG in NS 0.9% 250 ML IVPB SCH (16:02)
[2021-01-25 21:01] LABS: Hematocrit 29 % (42-52); Hemoglobin 9.6 g/dL (14.0-18.0); Mean Corpuscular HGB Conc 33 g/dL (31-36); Mean Corpuscular Hemoglobin 32 pg (27-31); Mean Corpuscular Volume 97 fL (80-94); Mean Platelet Volume 11.1 fL (7.4-10.4); Platelet Count 62 10^3/uL (150-450); Red Blood Count 3.02 10^6 /uL (4.18-5.48); Red Cell Distribution Width 23 % (10-15); White Blood Count 17.1 10^3/uL (3.5-10.8)
[2021-01-25 21:18] LABS: Calcium 7.1 mg/dL (8.6-10.3); EGFR African American 74.5 (>60); EGFR Non-African American 61.5 (>60); Phosphorus 2.6 mg/dL (2.5-5.0); Potassium 4.6 mmol/L (3.5-5.0); Total Bilirubin 1.3 mg/dL (0.2-1.0)
[2021-01-25] MEDS ORDERED: NORMOSOL-R pH 7.4 1000 mL BAG 1,000 ML IV SCH (22:00)
[2021-01-26] MEDS ORDERED: Dextrose 50% Syringe 50 ml 25 GM/50 ML SYRINGE IV PUSH PRN (00:33)
[2021-01-26] MEDS: Vancomycin 750 MG in NS 0.9% 250 ML IVPB SCH ×2 (00:58→16:59)
[2021-01-26] MEDS ORDERED: D5W 500 ml BAG 500 ML IV SCH (01:00)
[2021-01-26] MEDS: Cefepime 2 GM in Dextrose 2 GM/50 ML BAG IV SCH ×2 (03:53→16:59)
[2021-01-26 05:23] LABS: EGFR African American 69.7 (>60); EGFR Non-African American 57.6 (>60); Potassium 4.5 mmol/L (3.5-5.0)
[2021-01-26 05:28] LABS: ABS Basophils 0.1 10^3/ul (0-0.2); ABS Lymphocytes 0.3 10^3/ul (1.0-4.8); ABS Monocytes 0.3 10^3/ul (0-0.8); ABS Neutrophils 26.6 10^3/ul (1.5-7.7); ABS Nucleated RBC 0.3 10^3/ul; Hematocrit 27 % (42-52); Hemoglobin 9.3 g/dL (14.0-18.0); Lymphocyte % 1.1 %; Mean Corpuscular HGB Conc 34 g/dL (31-36); Mean Corpuscular Hemoglobin 33 pg (27-31); Mean Corpuscular Volume 96 fL (80-94); Mean Platelet Volume 11.9 fL (7.4-10.4); Nucleated Red Blood Cells % 1.2; Platelet Count 56 10^3/uL (150-450); Red Blood Count 2.83 10^6 /uL (4.18-5.48); Red Cell Distribution Width 24 % (10-15); White Blood Count 27.3 10^3/uL (3.5-10.8)
[2021-01-26 05:41] LABS: Burr Cells 3+
[2021-01-26 05:42] LABS: ABS Nucleated RBC 0.4 10^3/ul; Nucleated Red Blood Cells % 2.2; Polychromasia 1+
[2021-01-26 05:44] LABS: ABS Neutrophils 15.7 10^3/ul (1.5-7.7)
[2021-01-26] MEDS: Azithromycin 500 mg/250 ml NS 500 MG/250 ML BAG IVPB SCH (06:36)
[2021-01-26 07:52] LABS: Polychromasia 1+
[2021-01-26 08:10] LABS: Magnesium 2.1 mg/dL (1.9-2.7); Phosphorus 2.9 mg/dL (2.5-5.0)
[2021-01-26] MEDS: Magic MouthWash2-BEN/MAAL/LIDO/NYST 240 ML BTL (alt formulation) SWISH SPIT SCH ×4 (08:12→20:56)
[2021-01-26] MEDS: Sucralfate 1 gm SUSP 1 GM/10 ML UDC PO SCH ×2 (10:57→17:15)
[2021-01-26] MEDS ORDERED: Vancomycin Trough Check NOTE FOLLOW UP ONE (13:30)
[2021-01-26] MEDS ORDERED: Furosemide 20 mg/2 ml IV VIAL IV ONE (14:30)
[2021-01-26 15:23] LABS: Urine Chloride Concentration 58 mmol/L; Urine Potassium Concentration 43.4 mmol/L; Urine Sodium Concentration < 18 mmol/L
[2021-01-27] MEDS: Vancomycin 750 MG in NS 0.9% 250 ML IVPB SCH ×2 (02:33→13:24)
[2021-01-27] MEDS ORDERED: Morphine 2 MG/ML SYRINGE IV ONE ×2 (02:39→05:47)
[2021-01-27] MEDS: Cefepime 2 GM in Dextrose 2 GM/50 ML BAG IV SCH ×2 (04:46→16:43)
[2021-01-27] MEDS: Azithromycin 500 mg/250 ml NS 500 MG/250 ML BAG IVPB SCH (06:05)
[2021-01-27 06:28] LABS: Hematocrit 24 % (42-52); Mean Corpuscular HGB Conc 33 g/dL (31-36); Mean Corpuscular Hemoglobin 31 pg (27-31); Mean Corpuscular Volume 96 fL (80-94); Red Blood Count 2.54 10^6 /uL (4.18-5.48); Red Cell Distribution Width 23 % (10-15); White Blood Count 30.5 10^3/uL (3.5-10.8)
[2021-01-27 06:32] LABS: Calcium 7.1 mg/dL (8.6-10.3); Magnesium 2.1 mg/dL (1.9-2.7); Potassium 4.3 mmol/L (3.5-5.0)
[2021-01-27 06:38] LABS: EGFR African American 61.7 (>60); Phosphorus 2.5 mg/dL (2.5-5.0)
[2021-01-27 07:16] LABS: ABS Lymphocytes 0.3 10^3/ul (1.0-4.8); ABS Monocytes 0.5 10^3/ul (0-0.8); ABS Neutrophils 29.6 10^3/ul (1.5-7.7); ABS Nucleated RBC 0.3 10^3/ul; Nucleated Red Blood Cells % 0.9
[2021-01-27 07:20] LABS: Polychromasia 1+
[2021-01-27 07:23] LABS: Mean Platelet Volume 11.4 fL (7.4-10.4); Platelet Count 49 10^3/uL (150-450)
[2021-01-27] MEDS: Sucralfate 1 gm SUSP 1 GM/10 ML UDC PO SCH (09:23)
[2021-01-27] MEDS: Magic MouthWash2-BEN/MAAL/LIDO/NYST 240 ML BTL (alt formulation) SWISH SPIT SCH ×3 (09:23→21:14)
[2021-01-27] MEDS ORDERED: Lactated Ringers 1000 ml BAG 1,000 ML IV SCH (17:45)
[2021-01-27] MEDS ORDERED: Anidulafungin 200 MG in NS 0.9% 250 ml 200 ML IVPB ONE (18:00)
[2021-01-28] MEDS: Morphine 2 MG/ML SYRINGE IV PRN ×4 (00:23→07:49)
[2021-01-28] MEDS: Vancomycin 750 MG in NS 0.9% 250 ML IVPB SCH (01:43)
[2021-01-28] MEDS: Cefepime 2 GM in Dextrose 2 GM/50 ML BAG IV SCH (04:10)
[2021-01-28] MEDS: Azithromycin 500 mg/250 ml NS 500 MG/250 ML BAG IVPB SCH (05:49)
[2021-01-28 06:22] LABS: Calcium 7.5 mg/dL (8.6-10.3); EGFR African American 79.9 (>60); Magnesium 2.1 mg/dL (1.9-2.7); Phosphorus 1.9 mg/dL (2.5-5.0); Potassium 3.6 mmol/L (3.5-5.0)
[2021-01-28] MEDS: KCL 20 MEQ/100 ML IVPREMIX 20 MEQ/100 ML BAG IV SCH ×2 (07:35→10:25)
[2021-01-28 07:39] LABS: ABS Basophils 0.1 10^3/ul (0-0.2); ABS Lymphocytes 0.4 10^3/ul (1.0-4.8); ABS Monocytes 0.9 10^3/ul (0-0.8); ABS Nucleated RBC 0.3 10^3/ul; Hematocrit 23 % (42-52); Hemoglobin 7.7 g/dL (14.0-18.0); Lymphocyte % 1.2 %; Mean Corpuscular HGB Conc 33 g/dL (31-36); Mean Corpuscular Hemoglobin 32 pg (27-31); Mean Corpuscular Volume 95 fL (80-94); Mean Platelet Volume 10.2 fL (7.4-10.4); Microcytosis 2+; Platelet Count 36 10^3/uL (150-450); Polychromasia 1+; Red Blood Count 2.42 10^6 /uL (4.18-5.48); Red Cell Distribution Width 23 % (10-15); White Blood Count 31.4 10^3/uL (3.5-10.8)
[2021-01-28] MEDS ORDERED: Lorazepam PYXIS KEY PRN ×2 (10:20→11:11)
[2021-01-28] MEDS ORDERED: LORazepam 2 mg VIAL 1 ml IV PUSH ONE (10:20)
[2021-01-28] MEDS ORDERED: Lorazepam PYXIS KEY ONE (10:22)
[2021-01-28] MEDS ORDERED: LORazepam 2 mg VIAL 1 ml ONE (10:23)
[2021-01-28] MEDS: Magic MouthWash2-BEN/MAAL/LIDO/NYST 240 ML BTL (alt formulation) SWISH SPIT SCH ×2 (10:25→19:42)
[2021-01-28 10:30] VITALS: BP 123/86
[2021-01-28] MEDS: LORazepam 2 mg VIAL 1 ml IV PUSH SCH ×3 (12:57→14:44)
[2021-01-28] MEDS ORDERED: Vancomycin Trough Check NOTE FOLLOW UP ONE (13:30)
[2021-01-28] MEDS ORDERED: Glycopyrrolate IV 0.2 MG/ML 1 ML VIAL IV SLOW PU PRN (13:46)
[2021-01-28] MEDS ORDERED: LORazepam 2 mg VIAL 1 ml IV PUSH PRN (14:37)
[2021-01-28] MEDS ORDERED: Anidulafungin 100 MG in NS 0.9% 100 ml BAG 100 ML IVPB SCH (18:00)
== END 2021-01-29 01:00 | disposition expired | DRG 720 ==
LOC: ED 21:42 → ICU 01-25 01:30
PROVIDERS: ADMIT Internal Medicine; ATTEND Internal Medicine